=== PATIENT | male | born 1965 | race Caucasian/White ===

== ENCOUNTER 2022-12-17 04:36 | Emergency (ER) | payer MEDICAID ==
[~2022-12-17] VITALS: Ht 177.8 cm; Wt 81.8 kg
[2022-12-17 05:59] LABS: BASOPHILS % (AUTO) 0.7 % (0.0-2.0); HEMATOCRIT 47.9 % (41-53); HEMOGLOBIN 16.2 g/dL (13.5-17.5); LYMPHOCYTES # (AUTO) 1.8 K/uL (1.0-4.8); LYMPHOCYTES % (AUTO) 33.5 % (22.0-44.0); MEAN CORPUSCULAR HEMOGLOBIN 31.5 pg (26.0-34.0); MEAN CORPUSCULAR HGB CONC 33.9 G/dL (31.0-37.0); MEAN CORPUSCULAR VOLUME 93 fL (80-100); MONOCYTES # (AUTO) 0.5 K/uL (0.1-1.0); NEUTROPHILS % (AUTO) 54.8 % (40.0-70.0); PLATELET COUNT (AUTO) 168 K/uL (150-450); RED BLOOD CELL COUNT(AUTO) 5.15 MIL/uL (4.50-5.90); RED CELL DISTRIBUTION WIDTH 13.2 % (11.5-14.5)
[2022-12-17 06:07] LABS: ANION GAP 6 mmol/L (8-16); CALCIUM, TOTAL 8.7 mg/dL (8.8-10.5); CARBON DIOXIDE 29 mmol/L (22-29); CHLORIDE 102 mmol/L (98-107); GLOMERULAR FILTR. RATE CALC > 60 mL/min (>60); GLUCOSE,RANDOM 139 mg/dL (70-110); POTASSIUM 4.9 mmol/L (3.5-5.1); SODIUM SERUM 137 mmol/L (136-145); UREA NITROGEN, BLOOD 15 mg/dL (7-18)
[2022-12-17 06:11] LABS: PROTHROMBIN TIME 10.3 SEC (9.4-11.6)
[2022-12-17 06:13] LABS: ALANINE AMINOTRANSFERASE 36 U/L (12-78); ALKALINE PHOSPHATASE 120 U/L (46-116); ASPARTATE AMINOTRANSFERASE 24 U/L (15-37); BILIRUBIN,TOTAL 0.4 mg/dL (0.1-1.0); CREATINE KINASE, TOTAL ONLY 64 U/L (39-308); TOTAL PROTEIN, SERUM 7.4 g/dL (6.4-8.2)
[2022-12-17] MEDS ORDERED: KETOROLAC TROMETHAMINE 60 MG/2 ML VIAL IM ONE (06:15)
[2022-12-17] MEDS ORDERED: METHOCARBAMOL 500 MG TABLET PO ONE (06:15)
[2022-12-17 06:24] LABS: B-TYPE NATRIURETIC PEPTIDE 18 pg/mL (0-100)
[2022-12-17 08:15] VITALS: BP 141/78
[2022-12-17] MEDS ORDERED: IBUP-1492 PO (08:18)
[2022-12-17] MEDS ORDERED: METH-659 PO (08:19)
== END 2022-12-17 08:37 | disposition home or self-care (01) ==
LOC: EMS 04:39 → EDBD 04:39 → EMS 08:37
DX: M25.512 Pain in left shoulder (principal); I10 Essential (primary) hypertension
CPT/HCPCS: 99285; 71045; 80053; 82550; 83880; 84484; 85025; 85610; 85730; 36415; 73030; 93005; 96372; J1885

== ENCOUNTER 2023-02-17 08:55 | Emergency (ER) | payer MEDICAID ==
[~2023-02-17] VITALS: Ht 172.7 cm; Wt 100.0 kg
[~2023-02-17 08:55] MED LIST: IBUP-1492 PO; METH-659 PO
[2023-02-17] MEDS ORDERED: OXYM15SP57 NASAL (09:01)
[2023-02-17] MEDS ORDERED: AMOX TR/POT CLAV 875 MG/125 MG TABLET PO ONE (12:30)
[2023-02-17] MEDS ORDERED: PredniSONE 20 MG TABLET PO ONE (12:30)
[2023-02-17 13:12] LABS: COVID AG,FIA SOURCE NASOPHARYNGEAL
[2023-02-17 13:58] LABS: INFLUENZA TYPE A NEGATIVE FOR TYPE A (NEGATIVE); INFLUENZA TYPE B NEGATIVE FOR TYPE B (NEGATIVE)
[2023-02-17 14:00] LABS: RAPID GROUP A STREP NEGATIVE (NEGATIVE)
[2023-02-17] MEDS ORDERED: PRED-554 PO (15:33)
[2023-02-17] MEDS ORDERED: AMOX1TAB16 PO (15:33)
[2023-02-17 15:38] VITALS: BP 166/92
== END 2023-02-17 15:33 | disposition home or self-care (01) ==
LOC: EMS 09:04
DX: H66.91 Otitis media, unspecified, right ear (principal); R09.81 Nasal congestion; I10 Essential (primary) hypertension; Z20.822 Contact with and (suspected) exposure to COVID-19
CPT/HCPCS: 99284; 71046; 87426; 87430; 87804; J7512